=== PATIENT | male | born 1955 | race Caucasian/White ===

== ENCOUNTER 2022-02-18 07:27 | Outpatient (CLI) | payer MEDICARE ==
[2022-02-18] MEDS ORDERED: Iopamidol 370 76% 100 ML VIAL ONE (11:05)
== END 2022-02-18 07:28 | disposition home or self-care (01) ==
LOC: CT 07:27
PROVIDERS: ATTEND Internal Medicine
DX: R35.0 Frequency of micturition (principal); N28.1 Cyst of kidney, acquired; K80.20 Calculus of gallbladder without cholecystitis without obstruction; K57.30 Diverticulosis of large intestine without perforation or abscess without bleeding; Z90.79 Acquired absence of other genital organ(s)
CPT/HCPCS: 74178; 82565; Q9967